=== PATIENT | female | born 1940 | race Caucasian/White ===

== ENCOUNTER 2016-12-23 20:01 | Emergency (ER) | payer OTHER ==
[2016-12-23 20:50] VITALS: BP 132/80
[2016-12-23 21:12] LABS: PLATELET COUNT 146 x10^3mcL (130-400); RED CELL DISTRIBUTION WIDTH 12.9 % (11.5-14.5)
[2016-12-23 21:16] LABS: microscopic required? NO
[2016-12-23 21:24] LABS: UA SPECIFIC GRAVITY <=1.005 (1.005-1.035); urine erythrocyte NEGATIVE (NEGATIVE)
[2016-12-23 21:26] LABS: ALKALINE PHOSPHATASE 65 U/L (46-116); ALT/SGPT 188 U/L (14-59); AST/SGOT 213 U/L (15-37); BILIRUBIN TOTAL 0.2 mg/dL (0.20-1.00); CALCIUM 7.8 mg/dL (8.5-10.1); CARBON DIOXIDE 10.3 mmol/L (21-32); CHLORIDE SERUM 101 mmol/L (98-107); GLUCOSE SERUM 405 mg/dL (74-106); SODIUM SERUM 140 mmol/L (136-145)
[2016-12-23 21:27] LABS: ALBUMIN 2.3 g/dL (3.4-5.0); POTASSIUM SERUM 2.7 mmol/L (3.5-5.1); TOTAL PROTEIN, SERUM 5.1 g/dL (6.4-8.2)
[2016-12-23 21:35] LABS: BAND NEUTROPHIL 8 % (0-10); BASOPHIL 0 % (0-2); MONOCYTE 2 % (0-7); SEGMENTED NEUTROPHILS 67 % (37-75)
[2016-12-23 21:36] LABS: rbc morphology (normal/abnorm) ABNORMAL (NORMAL)
[2016-12-23 22:09] VITALS: BP 107/62
[2016-12-24 00:05] VITALS: BP 107/62
== END 2016-12-23 22:47 | disposition short-term general hospital (02) ==
LOC: ED 20:01
PROVIDERS: Emergency Medicine
DX: I21.19 ST elevation (STEMI) myocardial infarction involving other coronary artery of inferior wall (principal); I46.9 Cardiac arrest, cause unspecified; I10 Essential (primary) hypertension; E78.00 Pure hypercholesterolemia, unspecified; E11.9 Type 2 diabetes mellitus without complications; I25.10 Atherosclerotic heart disease of native coronary artery without angina pectoris; J44.9 Chronic obstructive pulmonary disease, unspecified; K21.9 Gastro-esophageal reflux disease without esophagitis
CPT/HCPCS: 82962; 83880; J2405; J2704; J2765; J3490; J7030; Q0092